=== PATIENT | female | born 1945 | race African-American/Black ===

== ENCOUNTER 2020-01-05 10:00 | Outpatient (CLI) | payer MEDICARE, SELFPAY ==
--- NOTE | ~2020-01-05 | XR_ITS ---
EXAMINATION: XR knee RT min 4V DATE: 01/05/2020 10:49 INDICATION: Multiple joint pain. TECHNIQUE: 4 views of right knee were obtained. COMPARISON: None. FINDINGS: Bone alignment is normal. No fracture. There is moderate osteoarthritis of medial compartme nt and mild osteoarthritis of lateral and patellofemoral compartments. No knee joint effusion. IMPRESSION: 1. Moderate right knee osteoarthritis. Reviewed, dictated and finalized at location A.
--- NOTE | ~2020-01-05 | XR_ITS ---
EXAMINATION: XR knee LT min 4V DATE: 01/05/2020 10:49 INDICATION: Multiple joint pain. TECHNIQUE: 4 views of left knee were obtained. COMPARISON: None. FINDINGS: Bone alignment is normal. No fracture. There is moderate osteoarthritis of medial compartme nt and mild osteoarthritis of lateral and patellofemoral compartments. No knee joint effusion. IMPRESSION: 1. Moderate left knee osteoarthritis. Reviewed, dictated and finalized at location A.
--- NOTE | ~2020-01-05 | XR_ITS ---
EXAMINATION: XR lumbar spine 6V w bending DATE: 01/05/2020 10:48 INDICATION: Multiple joint pain TECHNIQUE: Anteroposterior, lateral in neutral, flexion and extension, and bilateral oblique views of the lumbar spine, and cone-down lateral view of the lumbosacral junction were obtained. COMPARISON: None. FINDINGS: There are 6 mm of anterolisthesis of L4 on L5. No laxity is present with flexion or extensi on. There is no fracture. There is mild loss of intervertebral disc space height throughout the lumba r spine. The vertebral body heights are maintained. Small degenerative osteophytes project from the a nterior endplates of multiple vertebral bodies. There is severe facet osteoarthritis of the mid and l ower lumbar spine. Phleboliths are noted in the pelvis. The bowel gas pattern is normal. IMPRESSION: 1. Severe multilevel facet osteoarthritis and grade 1 anterolisthesis at L4-5, otherwise mild lumbar spondylosis. No acute findings. Reviewed, dictated and finalized at location A.
--- NOTE | ~2020-01-05 | XR_ITS ---
EXAMINATION: XR hip BI 2V w AP pelvis DATE: 01/05/2020 10:49 INDICATION: Multiple joint pain TECHNIQUE: AP view the pelvis and two views of each hip were obtained. COMPARISON: None. FINDINGS: Bone alignment is normal. There is no fracture. There is mild osteoarthritis of the pubic s ymphysis. Phleboliths are noted in the pelvis. IMPRESSION: 1. No acute osseous abnormality. Reviewed, dictated and finalized at location A.
[2020-01-05 11:06] LABS: Hematocrit 41.9 % (42.0-52.0); Hemoglobin 13.6 g/dL (14.0-18.0); Mean Corpuscular HGB Conc 32.5 g/dl (32-36); Mean Corpuscular Hemoglobin 31.3 pg (26-34); Mean Corpuscular Volume 96.5 fl (80-100); Mean Platelet Volume 9.9 fl (7.4-10.4); Platelet Count Result 216 k/mm3 (150-375); Red Blood Count 4.34 M/mm3 (4.6-6.20); Red Cell Distribution Width 11.6 % (11.5-14.5); White Blood Count 4.9 K/mm3 (4.5-10.0)
[2020-01-05 11:13] LABS: Add Urine Microscopic? YES; Appearance Urine Clear (Clear); Bilirubin Urine Negative (Negative); Blood Urine 1+ (Negative); Color Urine Yellow (Yellow); Glucose Urine UA Negative (Negative); Ketones Urine Negative (Negative); Leukocyte Esterase Ur 1+ LEU/UL (Negative); Mucus Urine Rare /lpf; Nitrate Urine Negative (Negative); Protein Urine Negative (Negative); Squamous Epithelial Cell Urine Many /hpf (Few); Urobilinogen Urine Negative mg/dL (<2.0)
[2020-01-05 11:26] LABS: Alanine Aminotransferase 14 U/L (4-50); Alkaline Phosphatase 69 U/L (38-126); Anion Gap 8 mmol/L (8-16); Aspartate Amino Transferase 21 U/L (17-59); Bilirubin,Total 0.3 mg/dL (0.2-1.3); Blood Urea Nitrogen 24 mg/dL (9-20); CRP 0.9 mg/dL (<1.0); Calcium 8.6 mg/dL (8.4-10.2); Carbon Dioxide 28 mmol/L (22-30); Chloride 106 mmol/L (98-107); Estimated Glomerular Filt Rate > 60; Glucose 94 mg/dL (75-110); Potassium 4.1 mmol/L (3.4-5.0); Rheumatoid Factor < 8.6 IU/ML (<12); Sodium 142 mmol/L (137-145)
[2020-01-09 12:04] LABS: Angiotensin Converting Enzyme 68 U/L (9-67)
[2020-01-09 21:54] LABS: Anti Cyclic Citrullinated Pept <16 Units (<20)
== END 2020-01-05 10:01 | disposition home or self-care (01) ==
PROVIDERS: PCP Internal Medicine; Visit Provider Internal Medicine
DX: M47.896 Other spondylosis, lumbar region (principal); M17.0 Bilateral primary osteoarthritis of knee
CPT/HCPCS: 36415; 72114; 73521; 73564; 80053; 81001; 82164; 85027; 86038; 86140; 86200; 86430; 87086; 87088

== ENCOUNTER 2020-12-18 00:58 | Day surgery (SDC) | payer MEDICARE, SELFPAY ==
[2020-12-04 09:58] VITALS: BMI 39.9
[2020-12-18 08:30] VITALS: BP 149/93; PULSE 91; RESP 18; TEMP 35.5; O2SAT 100; BMI 39.9
--- NOTE | 2020-12-18 08:39 | WPDANESEPPF ---
Anes - Initial Pre Proc Eval Procedure: Operation Date: 12/18/20 09:15 Proposed Procedures p Esophagogastroduodenoscopy & Screening Colonoscopy - Mk Zimmerman MD Date/Time: 12/18/20 08:39 Surgeon: Mk Zimmerman MD Pre Op Diagnosis: GERD, Neoplasm Screening Patient Data Age: 75 Gender: F Height: 1.57 m Weight: 99 kg Last Vital Signs Temp 35.5 C L 12/18/20 08:30 Pulse 91 12/18/20 08:30 Resp 18 12/18/20 08:30 BP 149/93 H 12/18/20 08:30 Pulse Ox 100 12/18/20 08:30 Allergies Allergy/AdvReac Type Severity Reaction Status Date / Time indomethacin Allergy Unknown Unknown Verified 12/18/20 08:28 levofloxacin [From Levaquin] Allergy Unknown Unknown Verified 12/18/20 08:28 Sulfa (Sulfonamide Allergy Unknown Unknown Verified 12/18/20 08:28 Antibiotics) Home Medications Medication Instructions Recorded Confirmed Type aspirin 81 mg tablet,delayed 81 mg PO DAILY 05/03/19 12/18/20 History release atorvastatin 40 mg tablet 40 mg PO DAILY 05/03/19 12/18/20 History esomeprazole magnesium 20 mg 20 mg PO DAILY 05/03/19 12/18/20 History capsule,delayed release naproxen 500 mg tablet 500 mg PO BID PRN #60 tablet 05/23/19 12/18/20 Rx prednisone 2.5 mg tablet 2.5 mg PO DAILY #40 tablet 01/09/20 12/18/20 Rx hydroxychloroquine 200 mg tablet 400 mg PO DAILY #60 tablet 06/04/20 12/18/20 Rx Patient hx anesthesia problems: none Family hx anesthesia problems: none PMFSH Past Medical History Medical History (Updated 01/09/20 @ 10:35 by Yonatan Cintron MD) Allergies Arthritis COPD (chronic obstructive pulmonary disease) Disorder of left rotator cuff (~11/2019) GERD (gastroesophageal reflux disease) 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 Surgical History Surgical History History of kidney surgery Family History Family History Father Kidney malignancy Mother Diabetes mellitus Sibling Diabetes mellitus Social History Social History Smoking status: Former smoker Tobacco type: cigarettes Alcohol intake: current Alcohol use details: socially Substance use: never Substance use type: does not use Living arrangements: with family Spiritual care concerns: No Anes - Eval Final PreProcedure Day of Procedure 12/18/20 08:39 Patient weight: obese Heart: regular rate and rhythm Lungs: clear to auscultation and normal air movement Airway: Mallampati scale class II Neurological: alert and oriented Last oral intake: >/= 8 hours ASA classification: III Emergent: no Anesthetic plan: proceed Anesthesia type and monitoring: general GIVS Informed Consent: The patient's anesthetic plan and its attendant risks and benefits were discussed with the patient/family/POA. Questions were solicited and answers provided to the satisfaction of the patient/family/POA.
[2020-12-18] MEDS: LACTATED RINGERS 1,000 ML 150 ML IV CONT (09:12)
--- NOTE | 2020-12-18 09:24 | PM.HPGS ---
History of Present Illness History of Present Illness Consent: Risks, benefits, and alternatives have been discussed and questions answered. Patient agrees to proceed with procedure. Chief complaint: GERD, Neoplasm Screening Narrative: Jing Chan is a 75 year old female with gerd, using nexium only as needed. She also is due to have a colonoscopy, last one 5 years ago with polyp. Review of Systems Constitutional: Constitutional: Denies headache(s) and Denies weakness Eyes: Eyes: Denies blurry vision ENT: Reports Normal hearing present, Denies headache(s) and Denies neck pain Cardiovascular: Cardiovascular: Denies chest pain and Denies dyspnea Respiratory: Respiratory: Denies dyspnea Gastrointestinal: Gastrointestinal: Reports no additional gastrointestinal complaints Genitourinary: Genitourinary: Denies dysuria Musculoskeletal: Musculoskeletal: Denies neck pain Integumentary/Breasts: Skin/Breast: Denies dry skin Neurologic: Reports Normal hearing present, Denies headache(s) and Denies weakness Psychiatric: Psychiatric: Denies anxiety Endocrine: Endocrine: Denies change in body appearance Hematologic/Lymphatic: Hematologic/Lymphatic: Denies easy bleeding Allergic/Immunologic: Allergic/Immunologic: Denies urticaria PMF Past Medical History Medical History (Updated 12/18/20 @ 09:25 by Mk Zimmerman MD) Allergies Arthritis Colon cancer screening COPD (chronic obstructive pulmonary disease) Disorder of left rotator cuff (~11/2019) GERD (gastroesophageal reflux disease) 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 Surgical History Surgical History History of kidney surgery Family History Family History Father Kidney malignancy Mother Diabetes mellitus Sibling Diabetes mellitus Social History Social History Smoking status: Former smoker Tobacco type: cigarettes Alcohol intake: current Alcohol use details: socially Substance use: never Substance use type: does not use Living arrangements: with family Spiritual care concerns: No Meds Home Medications and Allergies Home Medications Medication Instructions Recorded Confirmed Type aspirin 81 mg tablet,delayed 81 mg PO DAILY 05/03/19 12/18/20 History release atorvastatin 40 mg tablet 40 mg PO DAILY 05/03/19 12/18/20 History esomeprazole magnesium 20 mg 20 mg PO DAILY 05/03/19 12/18/20 History capsule,delayed release naproxen 500 mg tablet 500 mg PO BID PRN #60 tablet 05/23/19 12/18/20 Rx prednisone 2.5 mg tablet 2.5 mg PO DAILY #40 tablet 01/09/20 12/18/20 Rx hydroxychloroquine 200 mg tablet 400 mg PO DAILY #60 tablet 06/04/20 12/18/20 Rx Allergies Allergy/AdvReac Type Severity Reaction Status Date / Time indomethacin Allergy Unknown Unknown Verified 12/18/20 08:28 levofloxacin [From Levaquin] Allergy Unknown Unknown Verified 12/18/20 08:28 Sulfa (Sulfonamide Allergy Unknown Unknown Verified 12/18/20 08:28 Antibiotics) Vital Signs Vital Signs - 24 hr 12/18/20 08:30 Temperature 96 F L Pulse Rate 91 Respiratory Rate 18 Blood Pressure 149/93 H Pulse Oximetry 100 Exam Const: General: comfortable and no acute distress HENMT: General nose exam: Normal nares present Eyes: General: appearance normal, both eyes and all related structures Neck: Neck: no JVD Resp: Auscultation: clear to auscultation bilaterally Cardio: Rate: regular rate Rhythm: regular rhythm GI: Inspection: non-distended GI Palp: Yes Soft to palpation Skin: General skin exam: normal color Neuro: General: gait normal Speech: normal speech Extrem: General: normal to inspection Psych: Mental Status: mental status grossly normal Assessment and Plan Assessment and plan (1) GERD (
[2020-12-18] MEDS: BENZOCAINE (*SP) 60 ML SPRAY CAN (HURRICAINE) 1 SPRAY MUCOUS MEM (09:34)
[2020-12-18 10:16] VITALS: BP 81/46; PULSE 85; RESP 21; O2SAT 98
[2020-12-18 10:26] VITALS: BP 106/61; PULSE 82; RESP 20; O2SAT 96
[2020-12-18 10:36] VITALS: BP 119/56; PULSE 83; RESP 21; O2SAT 100
[2020-12-18 10:46] VITALS: BP 108/54; PULSE 76; RESP 20; O2SAT 100
== END 2020-12-18 11:13 | disposition home or self-care (01) ==
PROVIDERS: PCP Internal Medicine; Visit Provider Internal Medicine Gastroenterology
PROC: 0DJ08ZZ Inspection of Upper Intestinal Tract, Via Natural or Artificial Opening Endoscopic (ICD-10-PCS; CPT 43235; principal; 2020-12-18 09:15)
DX: Z12.11 Encounter for screening for malignant neoplasm of colon (principal); D12.3 Benign neoplasm of transverse colon; K63.5 Polyp of colon; K21.9 Gastro-esophageal reflux disease without esophagitis; K44.9 Diaphragmatic hernia without obstruction or gangrene; K22.2 Esophageal obstruction; K29.50 Unspecified chronic gastritis without bleeding; J44.9 Chronic obstructive pulmonary disease, unspecified; Z87.891 Personal history of nicotine dependence; Z79.82 Long term (current) use of aspirin
CPT/HCPCS: 43239; 45380; 45385; 88305; J2704; J7120

== ENCOUNTER 2021-08-29 08:49 | Outpatient (CLI) | payer MEDICARE, SELFPAY ==
[2021-08-29 09:18] LABS: Basophils Absolute Auto 0.1 K/mm3 (0.0-0.1); Eosinophils Absolute Auto 0.4 K/mm3 (0-0.3); Eosinophils Percent Auto 8.5 % (0-4.4); Hematocrit 46.4 % (37.0-47.0); Hemoglobin 14.4 g/dL (12.0-15.0); Immature Granulocyte Absolute 0.01 K/mm3 (0.00-0.031); Immature Granulocyte Percent A 0.2 % (0-0.5); Lymphocytes Absolute Auto 1.67 K/mm3 (0.9-3.2); Lymphocytes Percent Auto 34.5 % (18.3-44.2); Mean Corpuscular Volume 99.8 fl (80-100); Mean Platelet Volume 10.2 fl (7.4-10.4); Monocytes Absolute Auto 0.5 K/mm3 (0.1-0.6); Monocytes Percent Auto 9.3 % (2.6-8.5); Neutrophils Absolute Auto 2.3 K/mm3 (1.3-6.7); Neutrophils Percent Auto 46.5 % (45.5-73.1); Platelet Count Result 205 k/mm3 (150-375); Red Blood Count 4.65 M/mm3 (4.2-5.4); Red Cell Distribution Width 11.6 % (11.5-14.5); White Blood Count 4.8 K/mm3 (4.5-10.0)
[2021-08-29 09:31] LABS: Alanine Aminotransferase 12 U/L (4-35); Albumin Level 4.1 g/dL (3.5-5.1); Alkaline Phosphatase 63 U/L (38-126); Anion Gap 9 mmol/L (8-16); Aspartate Amino Transferase 24 U/L (14-36); Bilirubin,Total 0.6 mg/dL (0.2-1.3); Blood Urea Nitrogen 20 mg/dL (7-17); Calcium 8.7 mg/dL (8.4-10.2); Carbon Dioxide 30 mmol/L (22-30); Chloride 104 mmol/L (98-107); Estimated Glomerular Filt Rate > 60; Glucose 97 mg/dL (65-110); Potassium 3.6 mmol/L (3.4-5.0); Sodium 143 mmol/L (137-145)
[2021-08-29 10:00] LABS: Add Urine Microscopic? YES; Appearance Urine Clear (Clear); Bilirubin Urine Negative (Negative); Blood Urine Negative (Negative); Color Urine Yellow (Yellow); Glucose Urine UA Negative (Negative); Ketones Urine Negative (Negative); Leukocyte Esterase Ur 1+ LEU/UL (Negative); Nitrate Urine Negative (Negative); Protein Urine Negative (Negative); Specific Grav Ur >= 1.030 (1.001-1.035)
[2021-08-29 10:10] LABS: Mucus Urine Rare /lpf; Squamous Epithelial Cell Urine Many /hpf (Few); WBC Urine 16-20 /hpf
[2021-08-29 10:55] LABS: Erythrocyte Sedimentation Rate 20 mm/hr (0-20)
== END 2021-08-29 08:50 | disposition home or self-care (01) ==
LOC: ANHLAB 08:54
PROVIDERS: PCP Internal Medicine; Visit Provider Internal Medicine
DX: M06.9 Rheumatoid arthritis, unspecified (principal); Z79.899 Other long term (current) drug therapy
CPT/HCPCS: 36415; 80053; 81001; 85025; 85652; 87086; 87147; 87181; 87186

== ENCOUNTER 2021-09-09 13:11 | Outpatient (CLI) | payer MEDICARE, SELFPAY ==
--- NOTE | ~2021-09-09 | US_ITS ---
EXAMINATION: US pelvic complete w TV DATE: 09/09/2021 14:02 INDICATION: Postmenopausal bleeding TECHNIQUE: Multiple transabdominal and endovaginal sonographic images of the pelvis were obtained. COMPARISON: None. FINDINGS: The uterus measures 7.6 x 3.6 x 4.8 cm. There is a 2.8 x 2.4 cm intramural fibroid of the p osterior uterine body. The endometrial complex measures 6 mm. The left ovary is not visualized howeve r no left adnexal abnormality is seen. The right ovary measures 1.4 x 2.2 x 1.0 cm. There is normal v ascular flow in the right ovary. There is no free fluid in the pelvis. IMPRESSION: 1. No sonographic correlate for the patient's symptoms. Reviewed, dictated and finalized at location F.
== END 2021-09-09 13:12 | disposition home or self-care (01) ==
LOC: ANHIMG 13:15
PROVIDERS: PCP Internal Medicine; Visit Provider Obstetrics & Gynecology
DX: N93.9 Abnormal uterine and vaginal bleeding, unspecified (principal)
CPT/HCPCS: 76830; 76856

== ENCOUNTER → 2021-10-07 01:44 | Outpatient (CLI) | payer MEDICARE, SELFPAY ==
[2021-10-07 16:48] LABS: SARS-CoV-2 RNA PCR Negative
== END ==
PROVIDERS: PCP Internal Medicine; Visit Provider Internal Medicine
DX: R05.9 Cough, unspecified (principal); Z20.822 Contact with and (suspected) exposure to COVID-19
CPT/HCPCS: C9803; U0003; U0005

== ENCOUNTER 2021-11-06 08:52 | Outpatient (RCR) | payer MEDICARE, SELFPAY ==
[2021-11-06 09:05] VITALS: BP_SYST 135
--- NOTE | 2021-11-06 09:59 | PTOPEVAL ---
PHYSICAL THERAPY EVALUATION AND PLAN OF CARE 11-06-21 Thank you for referring Jing Chan to [facility], for the diagnosis of L shoulder pain. Her order is dated August, but she reports issues with getting here due to watching her great-grandchildren. Jing is scheduled to be seen for therapy? 0-1 x/week for 6 weeks. Due to her schedule and insurance co-payment, she requests PT treatments be scheduled once every 2 weeks. Please review, sign, date and return this plan of care LAUREL. I agree with and certify that the following plan of care is medically necessary. Referring Physician Date Attending Provider: Yonatan Cintron MD Past Medical History Source of Past Medical History Recalled from Previous Visit, Confirmed with Patient/Family Neurological History Hx Neurological Disorders No Significant History Cardiovascular History Hx Hypercholesterolemia Yes: med Respiratory History Hx Chronic Obstructive Pulmonary Disease Yes: inhaler (COPD) Gastrointestinal History Hx Appendectomy Yes Hx Cholecystectomy Yes Genitourinary History Hx Urinary Tract Infection Yes: frequent Musculoskeletal History Hx Arthritis Yes: sarcoidosis; all over arthritis Hx Back Pain Yes Hx Other Musculoskeletal Disorders Yes: B knee pain Hematological History Hx Hematological Disorders No Significant History Endocrine History Hx Endocrine Disorders No Significant History HEENT History Hx Cataracts Yes Hx Eye Surgery Yes Integumentary History Hx Skin Disorders No Significant History Reproductive History Hx Tubal Ligation Yes Psychosocial History Hx Psychiatric Disorders No Significant History Anesthesia History Hx Anesthesia Reactions No Significant History Other History Hx Other Medical Conditions Yes: obesity Evaluation Information Diagnosis L shoulder pain Onset May 2021 Subjective Information gradual increase in shoulder Query Text:As Reported By Patient/ pain, no trauma or injury to Family shoulder Diagnostic Tests X-Rays For This Problem No MRI For This Problem No Other Tests For This Problem No Previous Treatments Previous Treatments For This Problem no PT for shoulder in past Prior Level of Function Activity Level (Last 3 Months) Occupation disabled Hand Dominance Right Comments Additional Prior Level of Function is able to do bathing and self Comments care tasks-- difficulty doing hair, problems holding L arm up to fix hair; has assist with home cleaning and heavy home tasks; garcia
--- NOTE | 2021-12-04 09:57 | PCPTNOTE ---
Patient no showed to appointment this date.
--- NOTE | 2022-03-03 16:09 | PCPTNOTE ---
PHYSICAL THERAPY DISCHARGE 03-03-22 Attending Provider: Yonatan Cintron MD Patient:Jing Chan Date of :1945 LATE ENTRY Jing has not returned for any further treatments since the initial PT evaluation on 11/06/2021 for the diagnosis of L shoulder pain, therefore she will be discharged at this time. Thank you for referring this patient to [facility].
== END 2022-01-26 11:57 | disposition home or self-care (01) ==
LOC: ANHPT 08:52
PROVIDERS: PCP Internal Medicine; Visit Provider Internal Medicine
DX: M67.912 Unspecified disorder of synovium and tendon, left shoulder (principal)
CPT/HCPCS: 97161

== ENCOUNTER 2021-12-17 00:27 | Day surgery (SDC) | payer MEDICARE, SELFPAY ==
--- NOTE | 2021-11-24 10:29 | PC.NURSE ---
Report to the Outpatient Waiting Room, entrance under the green pavilion located off [facility], at time __0900 on date _11/27/21 . OR Time: __1100 . - You and your visitor will be asked a series of questions to screen for COVID 19 for your protection. - Only one visitor is allowed at this time. - The patient visitor is requested to leave or wait in car when not with patient. - A mask is required within the hospital. Patients may have clear liquids (water, carbonated beverages, clear teas, apple juice) until 3 hours prior to surgery with a maximum of 20 ounces. - No food from midnight until time of surgery - Infants may have breast milk until 4 hours before surgery, infant formula 6 hours prior to surgery. - Children will be allowed to drink immediately following surgery. If applicable, please bring a bottle or sippy cup to assist with drinking. Juice, water, soda, and popsicles are readily available. For infants on formula, please bring formula the day of surgery. Pacifiers are allowed. Take the following medications with a SIP of water the morning of surgery: ____NONE Medications to discontinue per physician ALL VITAMINS 3 DAYS___PRE OP Date to take last dose__11/23/21 Please no make-up, nail greenlandic, hairspray, perfume, deodorant, or body powder the day of surgery. No jewelry (including any body piercings) or valuables the day of surgery, leave them at home. Please take a shower or bath the night before, or the morning of, surgery with an antibacterial soap. Wear comfortable, loose fitting clothing. Children are encouraged to wear pajamas. - Jewelry must be removed prior to entering the operating room. Rings and piercings that are not removed may be cut off. - The hospital will not accept responsibility for valuables. - Please leave all valuables, including medications, at home the day of surgery. If you are going home after surgery, a licensed skidder driver must drive you home. - NO public transportation without another adult. - We recommend that an adult stay with you for 24 hours following discharge. - We also recommend that you do not drive, make important decision, drink alcoholic beverages, or take any drugs that were not prescribed by your health care provider for at least 24 hours after your discharge time. For Pediatric surgeries, we recommend two adults accompany the child home (only one inside the building at this time). Follow any additional instructions given to you from your surgeon. If you or anyone in your household have experienced Covid symptoms in the past week, please notify your surgeon or the nurse liaison at the phone number below for possible testing. Telephone instructions given to _PATIENT and asked if any additional questions and then verbalized understanding. Patient advised to call surgeon office or pre surgery nurse liaison [phone] if any additional questions.
[2021-11-24 10:35] VITALS: BMI 42.5
--- NOTE | 2021-12-10 09:00 | PC.NURSE ---
Addendum entered by Gretel Campbell RN 12/10/21 09:05: PT INFORMED TO USE INHALER DAY OF SURGERY IF NEEDED - UNDERSTANDING VOICED Original Note: Report to the Outpatient Waiting Room, entrance under the green pavilion located off [facility], at time ___1000____ on date __12/17/21 . OR Time: _1200 . - You and your visitor will be asked a series of questions to screen for COVID 19 for your protection. - Only one visitor is allowed at this time. - The patient visitor is requested to leave or wait in car when not with patient. - A mask is required within the hospital. Patients may have clear liquids (water, carbonated beverages, clear teas, apple juice) until 3 hours prior to surgery (0900 AM) with a maximum of 20 ounces. - No food from midnight until time of surgery - Infants may have breast milk until 4 hours before surgery, formula 6 hours prior to surgery. - Children will be allowed to drink immediately following surgery. If applicable, please bring a bottle or sippy cup to assist with drinking. Juice, water, soda, and popsicles are readily available. For infants on formula, please bring formula the day of surgery. Pacifiers are allowed. Take the following medications with a SIP of water the morning of surgery: N/A Medications to discontinue per physician ALL VITAMINS AND SUPPLEMENTS 3 DAYS PRIOR TO SURGERY Date to take last dose___12/13/21 Please no make-up, nail albanian, hairspray, perfume, deodorant, or body powder the day of surgery. No jewelry (including any body piercings) or valuables the day of surgery, leave them at home. Please take a shower or bath the night before, or the morning of, surgery with an antibacterial soap. Wear comfortable, loose fitting clothing. Children are encouraged to wear pajamas. - Jewelry must be removed prior to entering the operating room. Rings and piercings that are not removed may be cut off. - The hospital will not accept responsibility for valuables. - Please leave all valuables, including medications, at home the day of surgery. If you are going home after surgery, a licensed class c truck driver must drive you home. - NO public transportation without another adult. - We recommend that an adult stay with you for 24 hours following discharge. - We also recommend that you do not drive, make important decision, drink alcoholic beverages, or take any drugs that were not prescribed by your health care provider for at least 24 hours after your discharge time. For Pediatric surgeries, we recommend two adults accompany the child home (only one inside the building at this time). Follow any additional instructions given to you from your surgeon. If you or anyone in your household have experienced Covid symptoms in the past week, please notify your surgeon or the nurse liaison at the phone number below for possible testing. Telephone instructions given to __PT and asked if any additional questions and then verbalized understanding. Patient advised to call surgeon office or pre surgery nurse liaison [phone] if any additional questions.
[2021-12-10 09:03] VITALS: BMI 42.5
--- NOTE | 2021-12-17 08:35 | PM.IMHP ---
H&P: HPI History of Present Illness Date/Time: 12/17/21 08:35 76-year-old female presents for evaluation of postmenopausal bleeding. First experience this spotting/ red discharge approximate 3-4 months ago at which time ultrasound was performed which showed small fibroid and normal endometrial stripe. She has continued to have spotting and we have discussed options and she desires to proceed with hysteroscopic exam to confirm no abnormalities other than potentially the fibroid causing the bleeding. Chief Complaint: Postmenopausal bleeding Review of Systems Review of Systems: All systems reviewed & are unremarkable except as noted in HPI and below PMFSH Past Medical History Medical History Abnormal Pap smear of cervix 06-15-2019 [facility] hpv negative rpt pap in 1 year @ [facility] 12/16/2017 +HPV Allergies Arthritis Asthma Colon cancer screening COPD (chronic obstructive pulmonary disease) Disorder of left rotator cuff (~11/2019) Gall stones GERD (gastroesophageal reflux disease) 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 Surgical History Surgical History History of cholecystectomy History of dilation and curettage (09/28/19) D&C postmenopausal bleeding , uterine fibroids : benign History of kidney surgery History of tubal ligation Family History Family History Father Kidney malignancy Heart disease Mother Diabetes mellitus Sibling Diabetes mellitus Other Breast cancer cousin Social History Social History Smoking packs per day: 0.5 Smoking cigarettes per day: 10.0 Years smoked: 15 Smoking pack-years: 7.50 Smoking status: Former smoker Tobacco type: cigarettes Smoking end date: 05/17/69 Alcohol intake: current Alcohol use details: socially Substance use: never Substance use type: does not use Living arrangements: with family Additional living arrangements comments: Gender identity (if verbalized by the patient): Female Sexual Orientation (if Verbalized by the Patient): Straight or Heterosexual Spiritual care concerns: No Meds Home Medications and Allergies Home Medications Medication Instructions Recorded Confirmed Type atorvastatin 40 mg tablet 40 mg PO DAILY 05/03/19 12/10/21 History esomeprazole magnesium 20 mg 20 mg PO DAILY #30 caps 12/25/20 12/10/21 Rx capsule,delayed release cetirizine 10 mg tablet 10 mg PO DAILY PRN Allergy Symptoms 08/28/21 12/10/21 History meclizine 25 mg tablet 25 mg PO BID PRN Dizziness 08/28/21 12/10/21 History trazodone 50 mg tablet 25 mg PO QHS PRN Pain 08/28/21 12/10/21 History albuterol 90 mcg/actuation aerosol 90 mcg inhalation PRN PRN 11/24/21 12/10/21 History inhaler Shortness Of Breath allopurinol 100 mg tablet 1 tablet PO DAILY 11/24/21 12/10/21 History calcitriol 0.25 mcg capsule 1 cap PO DAILY 11/24/21 12/10/21 History ergocalciferol (vitamin D2) 1,250 1 cap PO WEEKLY 11/24/21 12/10/21 History mcg (50,000 unit) capsule hydroxychloroquine 200 mg tablet 200 mg PO BID 11/24/21 12/10/21 History (Plaquenil) losartan 25 mg tablet 1 tablet PO DAILY 11/24/21 12/10/21 History Allergies Allergy/AdvReac Type Severity Reaction Status Date / Time indomethacin Allergy Unknown Itching Verified 12/10/21 09:02 levofloxacin [From Levaquin] Allergy Unknown Itching Verified 12/10/21 09:02 Sulfa (Sulfonamide Allergy Unknown Hives Verified 12/10/21 09:02 Antibiotics) Exam Const: General: cooperative, healthy appearing and comfortable Resp: Effort & Inspection: normal respiratory effort Auscultation: clear to auscultation bilaterally Cardio: Rate: regular rate Rhythm: regular rhythm GI: Inspection: normal to inspection Ausculta
--- NOTE | 2021-12-17 08:37 | WPDHPUPDATE1 ---
History and Physical Update Update Date/Time: 12/17/21 08:37 History and Physical has been reviewed, including an updated exam of the patient. There are NO changes in the patient's condition. Risks, benefits, and alternatives have been discussed and questions answered. Patient agrees to proceed with procedure.
[2021-12-17 10:02] VITALS: BP 142/75; PULSE 90; RESP 18; TEMP 36.7; O2SAT 100
[2021-12-17] MEDS: LACTATED RINGERS 1,000 ML 30 ML IV CONT (10:30)
[2021-12-17] MEDS: ACETAMINOPHEN 500 MG TABLET 1000 MG PO (10:33)
--- NOTE | 2021-12-17 11:05 | WPDANESEPPF ---
Anes - Initial Pre Proc Eval Procedure: Operation Date: 12/17/21 12:00 Proposed Procedures p Hysteroscopy, Dilation and Curettage - Juan José Lott MD Date/Time: 12/17/21 11:05 Surgeon: Juan José Lott MD Pre Op Diagnosis: post menopausal bleeding Patient Data Age: 76 Gender: F Height: 1.55 m Weight: 102 kg Last Vital Signs Temp 98.1 F 12/17/21 10:02 Pulse 90 12/17/21 10:02 Resp 18 12/17/21 10:02 BP 142/75 H 12/17/21 10:02 Pulse Ox 100 12/17/21 10:02 O2 Del Method Room Air 12/17/21 10:02 Allergies Allergy/AdvReac Type Severity Reaction Status Date / Time indomethacin Allergy Unknown Itching Verified 12/17/21 10:11 levofloxacin [From Levaquin] Allergy Unknown Itching Verified 12/17/21 10:11 Sulfa (Sulfonamide Allergy Unknown Hives Verified 12/17/21 10:11 Antibiotics) Home Medications Medication Instructions Recorded Confirmed Type atorvastatin 40 mg tablet 40 mg PO DAILY 05/03/19 12/17/21 History esomeprazole magnesium 20 mg 20 mg PO DAILY #30 caps 12/25/20 12/17/21 Rx capsule,delayed release cetirizine 10 mg tablet 10 mg PO DAILY PRN Allergy Symptoms 08/28/21 12/17/21 History meclizine 25 mg tablet 25 mg PO BID PRN Dizziness 08/28/21 12/17/21 History trazodone 50 mg tablet 25 mg PO QHS PRN Pain 08/28/21 12/17/21 History albuterol 90 mcg/actuation aerosol 90 mcg inhalation PRN PRN 11/24/21 12/17/21 History inhaler Shortness Of Breath allopurinol 100 mg tablet 1 tablet PO DAILY 11/24/21 12/17/21 History calcitriol 0.25 mcg capsule 1 cap PO DAILY 11/24/21 12/17/21 History ergocalciferol (vitamin D2) 1,250 1 cap PO WEEKLY 11/24/21 12/17/21 History mcg (50,000 unit) capsule hydroxychloroquine 200 mg tablet 200 mg PO BID 11/24/21 12/17/21 History (Plaquenil) losartan 25 mg tablet 1 tablet PO DAILY 11/24/21 12/17/21 History Patient hx anesthesia problems: none Family hx anesthesia problems: none Results Review: All pre-operative results and documents have been reviewed as part of the pre-operative evaluation. 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 Surgical History Surgical History History of cholecystectomy History of dilation and curettage (09/28/19) D&C postmenopausal bleeding , uterine fibroids : benign History of kidney surgery History of tubal ligation Family History Family History Father Kidney malignancy Heart disease Mother Diabetes mellitus Sibling Diabetes mellitus Other Breast cancer cousin Social History Social History Smoking packs per day: 0.5 Smoking cigarettes per day: 10.0 Years smoked: 15 Smoking pack-years: 7.50 Smoking status: Former smoker Tobacco type: cigarettes Smoking end date: 05/17/69 Alcohol intake: current Alcohol use details: socially Substance use: never Substance use type: does not use Living arrangements: with family Additional living arrangements comments: Gender identity (if verbalized by the patient): Female Sexual Orientation (if Verbalized by the Patient): Straight or Heterosexual Spiritual care concerns: No Anes - Eval Final PreProcedure Day of Procedure 12/17/21 11:05 Patient weight: morbidly obese Heart: regular rate and rhythm Lungs: clear to auscultation Airway: Mallampati scale class II Neurological: alert and oriented Last oral
--- NOTE | 2021-12-17 11:28 | WPDANESEPPF ---
Anes - Initial Pre Proc Eval Procedure: Operation Date: 12/17/21 12:00 Proposed Procedures p Hysteroscopy, Dilation and Curettage - Juan José Lott MD Date/Time: 12/17/21 11:28 Surgeon: Juan José Lott MD Pre Op Diagnosis: post menopausal bleeding Patient Data Age: 76 Gender: F Height: 1.55 m Weight: 102 kg Last Vital Signs Temp 98.1 F 12/17/21 10:02 Pulse 90 12/17/21 10:02 Resp 18 12/17/21 10:02 BP 142/75 H 12/17/21 10:02 Pulse Ox 100 12/17/21 10:02 O2 Del Method Room Air 12/17/21 10:02 Allergies Allergy/AdvReac Type Severity Reaction Status Date / Time indomethacin Allergy Unknown Itching Verified 12/17/21 10:11 levofloxacin [From Levaquin] Allergy Unknown Itching Verified 12/17/21 10:11 Sulfa (Sulfonamide Allergy Unknown Hives Verified 12/17/21 10:11 Antibiotics) Home Medications Medication Instructions Recorded Confirmed Type atorvastatin 40 mg tablet 40 mg PO DAILY 05/03/19 12/17/21 History esomeprazole magnesium 20 mg 20 mg PO DAILY #30 caps 12/25/20 12/17/21 Rx capsule,delayed release cetirizine 10 mg tablet 10 mg PO DAILY PRN Allergy Symptoms 08/28/21 12/17/21 History meclizine 25 mg tablet 25 mg PO BID PRN Dizziness 08/28/21 12/17/21 History trazodone 50 mg tablet 25 mg PO QHS PRN Pain 08/28/21 12/17/21 History albuterol 90 mcg/actuation aerosol 90 mcg inhalation PRN PRN 11/24/21 12/17/21 History inhaler Shortness Of Breath allopurinol 100 mg tablet 1 tablet PO DAILY 11/24/21 12/17/21 History calcitriol 0.25 mcg capsule 1 cap PO DAILY 11/24/21 12/17/21 History ergocalciferol (vitamin D2) 1,250 1 cap PO WEEKLY 11/24/21 12/17/21 History mcg (50,000 unit) capsule hydroxychloroquine 200 mg tablet 200 mg PO BID 11/24/21 12/17/21 History (Plaquenil) losartan 25 mg tablet 1 tablet PO DAILY 11/24/21 12/17/21 History Patient hx anesthesia problems: none Family hx anesthesia problems: none Results Review: All pre-operative results and documents have been reviewed as part of the pre-operative evaluation. 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 Surgical History Surgical History History of cholecystectomy History of dilation and curettage (09/28/19) D&C postmenopausal bleeding , uterine fibroids : benign History of kidney surgery History of tubal ligation Family History Family History Father Kidney malignancy Heart disease Mother Diabetes mellitus Sibling Diabetes mellitus Other Breast cancer cousin Social History Social History Smoking packs per day: 0.5 Smoking cigarettes per day: 10.0 Years smoked: 15 Smoking pack-years: 7.50 Smoking status: Former smoker Tobacco type: cigarettes Smoking end date: 05/17/69 Alcohol intake: current Alcohol use details: socially Substance use: never Substance use type: does not use Living arrangements: with family Additional living arrangements comments: Gender identity (if verbalized by the patient): Female Sexual Orientation (if Verbalized by the Patient): Straight or Heterosexual Spiritual care concerns: No Anes - Eval Final PreProcedure Day of Procedure 12/17/21 11:28 Patient weight: morbidly obese Airway: Mallampati scale class II ASA classification: III Anesthesia type and monitoring: general GIVS and standard monitoring Results Re
--- NOTE | 2021-12-17 12:25 | W.PM.PROC2 ---
Procedure Note - Detailed Date of Procedure 12/17/21 Pre-op Diagnosis post menopausal bleeding Post-op Diagnosis Same Procedure Performed Hysteroscopy with uterine curettings Surgeon Juan José Lott MD Anesthesia MAC Findings Small intrauterine clot. Endometrial cavity atrophic. No polyps fibroids or hypervascularity noted. Description of Procedure Patient prepped draped usual manner for this procedure. Cervix dilated to allow the hysteroscope to place which was placed with findings as noted above. Curetting was then obtained with minimal tissue. At this point procedure was considered terminated patient was sent to recovery in a stable condition. Estimated Blood Loss 10 Drains No Packing No Pathology Yes Complications No immediate complications Condition Stable Disposition PACU [facility] Billing Surgery - Charge Forward: Surgery Billing
[2021-12-17 12:30] VITALS: BP 101/57; PULSE 83; RESP 16; O2SAT 97
[2021-12-17 13:25] VITALS: BP 110/58; PULSE 78; RESP 16
== END 2021-12-17 13:35 | disposition home or self-care (01) ==
PROVIDERS: PCP Internal Medicine; Visit Provider Obstetrics & Gynecology
PROC: 0U5B8ZZ Destruction of Endometrium, Via Natural or Artificial Opening Endoscopic (ICD-10-PCS; CPT 58563; principal; 2021-12-17 12:00)
DX: N95.0 Postmenopausal bleeding (principal); J44.9 Chronic obstructive pulmonary disease, unspecified; K21.9 Gastro-esophageal reflux disease without esophagitis; Z79.51 Long term (current) use of inhaled steroids; Z87.891 Personal history of nicotine dependence; E66.01 Morbid (severe) obesity due to excess calories; Z68.41 Body mass index [BMI] 40.0-44.9, adult
CPT/HCPCS: 58558; 88305; A9270; J2704; J3010; J7030; J7120

== ENCOUNTER 2023-11-16 14:34 | Emergency (ER) | payer MEDICARE, SELFPAY ==
--- NOTE | ~2023-11-16 | CT_ITS ---
EXAMINATION: CT brain wo con DATE: 11/16/2023 16:58 INDICATION: R sided headache . TECHNIQUE: Computed tomography (CT) of the head was performed without intravenous contrast. The mA wa s adjusted according to patient size. Iterative reconstruction technique was employed. The dose-lengt h product was 605.33 mGy-cm. COMPARISON: None. FINDINGS: No acute intracranial hemorrhage or extra-axial fluid collection. No hydrocephalus, mass, or herniation. No acute ischemic infarct. Unremarkable dural venous sinus attenuation. No acute osseous abnormality. Small retention cyst/polyp in the right sphenoid sinus, ethmoid mucosal thickening, the remaining aer ated spaces are clear. Mild atrophy and chronic white matter change. Atherosclerotic intracranial calcification. Bilateral l ens replacements. Bilateral basal ganglia calcification. IMPRESSION: No acute intracranial process. Reviewed, dictated and finalized at location K.
[2023-11-16 14:45] VITALS: BP 111/66; PULSE 87; RESP 16; TEMP 36.3; O2SAT 100
--- NOTE | 2023-11-16 16:48 | ED.GENADULT ---
HPI - General Adult General Chief complaint: Dizziness Stated complaint: headache, dizzy Time Seen by Provider: 11/16/23 16:01 History of Present Illness HPI narrative: This is a very pleasant 78-year-old female presenting with a right-sided headache. Patient's headache has been coming on and off for the last several weeks. She describes as a throbbing pain. It is not associated with visual changes, loss of consciousness, trauma or neurologic deficits. Patient notes she is under significant amount of stress at home. She is not taking anything for pain control. She came to the ED because she call her primary care physician telling him that she had a headache and he said it could be a stroke. Related Data Home Medications Medication Instructions Recorded Confirmed atorvastatin 40 mg tablet 40 mg PO DAILY 05/03/19 09/21/23 cetirizine 10 mg tablet 10 mg PO DAILY PRN Allergy Symptoms 08/28/21 09/21/23 meclizine 25 mg tablet 25 mg PO BID PRN Dizziness 08/28/21 09/21/23 trazodone 50 mg tablet 25 mg PO QHS PRN Pain 08/28/21 09/21/23 albuterol 90 mcg/actuation aerosol 90 mcg inhalation PRN PRN 11/24/21 09/21/23 inhaler Shortness Of Breath allopurinol 100 mg tablet 1 tablet PO DAILY 11/24/21 09/21/23 calcitriol 0.25 mcg capsule 1 cap PO DAILY 11/24/21 09/21/23 ergocalciferol (vitamin D2) 1,250 1 cap PO WEEKLY 11/24/21 09/21/23 mcg (50,000 unit) capsule losartan 25 mg tablet 1 tablet PO DAILY 11/24/21 09/21/23 Allergies Allergy/AdvReac Type Severity Reaction Status Date / Time indomethacin Allergy Unknown Itching Verified 09/21/23 09:47 levofloxacin [From Levaquin] Allergy Unknown Itching Verified 09/21/23 09:47 Penicillins Allergy Unknown Unknown Verified 09/21/23 09:47 Sulfa (Sulfonamide Allergy Unknown Hives Verified 09/21/23 09:47 Antibiotics) COUNTS INCLUDE 234 BEDS AT THE [facility] Past Medical History Medical History Abnormal Pap smear of cervix 06-15-2019 ascus hpv negative rpt pap in 1 year @ A/E 12/16/2017 +HPV Allergies Arthritis Asthma Colon cancer screening COPD (chronic obstructive pulmonary disease) 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 (~11/2019) Gall stones GERD (gastroesophageal reflux disease) 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 Surgical History Surgical History History of cholecystectomy History of dilation and curettage (09/28/19) D&C postmenopausal bleeding , uterine fibroids : benign History of hysteroscopy (12/17/21) Hscope D&C PMB History of kidney surgery History of tubal ligation Family History Family History Father Kidney malignancy Heart disease Mother Diabetes mellitus Sibling Diabetes mellitus Other Breast cancer cousin Social History Social History Smoking packs per day: 0.5 Smoking cigarettes per day: 10.0 Years smoked: 15 Smoking pack-years: 7.50 Smoking status: Former smoker Tobacco type: cigarettes Smoking end date: 05/17/69 Alcohol intake: current Alcohol use details: socially Substance use: never Substance use type: does not use Living arrangements: with family Additional living arrangements comments: Occupation/Education: retired Gender identity (if verbalized by the patient): Female Sexual Orientation (if Verbalized by the Patient): Straight or Heterosexual Spiritual care concerns: No Exam Narrative: APPEARANCE: No apparent distress. Head: atraumatic. EYES: EOMI, NOSE: Atraumatic NECK: Trachea midline RESPIRATORY: No increased rate of breathing CARDIOVASCULAR: RRR, ABDOMINAL: Non-distended MUSCULOSKELETAl: No obvious deformities NEURO: Alert. Cranial nerves 2-12 grossly intact. Sensation light touch, motor f
[2023-11-16] MEDS: ACETAMINOPHEN 500 MG TABLET 1000 MG PO (17:40)
[2023-11-16] MEDS: diphenhydrAMINE HCl CAP 25 MG CAPSULE PO (17:51)
[2023-11-16] MEDS: PROCHLORPERAZINE EDISYLATE 10 MG/2 ML VIAL IM (17:51)
== END 2023-11-16 17:45 | disposition home or self-care (01) ==
PROVIDERS: Emergency Provider Emergency Medicine; PCP Internal Medicine
DX: R51.9 Headache, unspecified (principal); J44.9 Chronic obstructive pulmonary disease, unspecified; D86.0 Sarcoidosis of lung; M19.90 Unspecified osteoarthritis, unspecified site; M47.816 Spondylosis without myelopathy or radiculopathy, lumbar region; K21.9 Gastro-esophageal reflux disease without esophagitis; Z90.49 Acquired absence of other specified parts of digestive tract; Z87.891 Personal history of nicotine dependence; Z79.899 Other long term (current) drug therapy
CPT/HCPCS: 70450; 96372; 99284; A9270; J0780

== ENCOUNTER 2024-07-18 00:27 | Day surgery (SDC) | payer MEDICARE, SELFPAY ==
[2024-04-20 09:49] VITALS: BMI 39.9
[2024-07-05 09:34] VITALS: BMI 39.9
[2024-07-18 09:16] VITALS: BP 155/91; PULSE 108; RESP 20; TEMP 36; O2SAT 100
[2024-07-18] MEDS: LACTATED RINGERS 1,000 ML 150 ML IV CONT (09:28)
--- NOTE | 2024-07-18 09:33 | WPDANESEPPF ---
Anes - Initial Pre Proc Eval Procedure: Operation Date: 07/18/24 10:30 Proposed Procedures p Colonoscopy - Mk Zimmerman MD Date/Time: 07/18/24 09:33 Surgeon: Mk Zimmerman MD Pre Op Diagnosis: Personal hx. of colon polyps Patient Data Age: 79 Gender: F Height: 1.57 m Weight: 98 kg Last Vital Signs Temp 36.0 C L 07/18/24 09:16 Pulse 108 H 07/18/24 09:16 Resp 20 07/18/24 09:16 BP 155/91 H 07/18/24 09:16 Pulse Ox 100 07/18/24 09:16 O2 Del Method Room Air 07/18/24 09:16 Allergies Allergy/AdvReac Type Severity Reaction Status Date / Time indomethacin Allergy Unknown Itching Verified 07/18/24 09:08 levofloxacin (From Levaquin) Allergy Unknown Itching Verified 07/18/24 09:08 Penicillins Allergy Unknown Unknown Verified 07/18/24 09:08 Sulfa (Sulfonamide Allergy Unknown Hives Verified 07/18/24 09:08 Antibiotics) Home Medications ?Medication ?Instructions ?Recorded ?Confirmed ?Type atorvastatin 40 mg tablet 40 mg PO DAILY 05/03/19 07/18/24 History cetirizine 10 mg tablet 10 mg PO DAILY PRN Allergy Symptoms 08/28/21 07/05/24 History meclizine 25 mg tablet 25 mg PO BID PRN Dizziness 08/28/21 04/20/24 History albuterol 90 mcg/actuation aerosol 90 mcg inhalation PRN PRN 11/24/21 07/18/24 History inhaler Shortness Of Breath allopurinol 100 mg tablet 1 tablet PO DAILY 11/24/21 07/18/24 History calcitriol 0.25 mcg capsule 1 cap PO DAILY 11/24/21 07/18/24 History ergocalciferol (vitamin D2) 1,250 1 cap PO WEEKLY 11/24/21 07/18/24 History mcg (50,000 unit) capsule losartan 25 mg tablet 1 tablet PO DAILY 11/24/21 07/18/24 History hydroxychloroquine 200 mg tablet 200 mg PO BID #180 tabs 09/21/23 07/18/24 Rx (Plaquenil) Patient hx anesthesia problems: none Family hx anesthesia problems: none Results Review: All pre-operative results and documents have been reviewed as part of the pre-operative evaluation. [facility] Past Medical History Medical History Degenerative joint disease (DJD) of lumbar spine Asthma Gall stones Abnormal Pap smear of cervix 06-15-2019 ascus hpv negative rpt pap in 1 year @ A/E 12/16/2017 +HPV Colon cancer screening Disorder of left rotator cuff (~11/2019) 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 GERD (gastroesophageal reflux disease) Arthritis COPD (chronic obstructive pulmonary disease) Allergies Surgical History Surgical History History of hysteroscopy (12/17/21) Hscope D&C PMB History of cholecystectomy History of tubal ligation History of dilation and curettage (09/28/19) D&C postmenopausal bleeding , uterine fibroids : benign History of kidney surgery Family History Family History Father Kidney malignancy Heart disease Mother Diabetes mellitus Sibling Diabetes mellitus Other Breast cancer cousin Social History Social History Smoking packs per day: 0.5 Smoking cigarettes per day: 10.0 Years smoked: 15 Smoking pack-years: 7.50 Smoking status: Former smoker Tobacco type: cigarettes Smoking end date: 05/17/69 Alcohol intake: current Alcohol use details: socially Substance use: never Substance use type: does not use Living arrangements: with family Additional living arrangements comments: Occupation/Education: retired Gender identity (if verbalized by the patient): Female Sexual Orientation (if Verbalized by the Patient): Straight or Heterosexual Spiritual care concerns: No Anes - Eval Final PreProcedure Day of Procedure 07/18/24 09:33 Patient weight: morbidly obese Heart: regular rate and rhythm Lungs: clear to auscultation Airway: Mallampati scale class II Neurological: alert and oriented Last oral intake: >/= 8 hours ASA classification: III Emergent: no Anesthetic plan: proceed Anesthesia type and monitoring: general GIVS and standard monitoring Results Review: All pre-operative results and documents have been reviewed as part of the pre-operative evaluation. Informed Consent: The patient's anesthetic plan and its attendant risks and benefits were discussed with the patient/family/POA. Questions were solicited and answers provided to the satisfaction of the patient/family/POA.
--- NOTE | 2024-07-18 09:40 | PM.HPGS ---
History of Present Illness History of Present Illness Consent: Risks, benefits, and alternatives have been discussed and questions answered. Patient agrees to proceed with procedure. Chief complaint: Personal hx. of colon polyps Narrative: Jing Chan is a 79 year old female with colon polyp 2020 Review of Systems Review of Systems: All systems reviewed & are unremarkable except as noted in HPI and below PMFSH Past Medical History Medical History (Updated 07/18/24 @ 09:43 by Mk Zimmerman MD) Colon polyp Degenerative joint disease (DJD) of lumbar spine Asthma Gall stones Abnormal Pap smear of cervix 06-15-2019 ascus hpv negative rpt pap in 1 year @ A/E 12/16/2017 +HPV Colon cancer screening Disorder of left rotator cuff (~11/2019) 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 GERD (gastroesophageal reflux disease) Arthritis COPD (chronic obstructive pulmonary disease) Allergies Surgical History Surgical History History of hysteroscopy (12/17/21) Hscope D&C PMB History of cholecystectomy History of tubal ligation History of dilation and curettage (09/28/19) D&C postmenopausal bleeding , uterine fibroids : benign History of kidney surgery Family History Family History Father Kidney malignancy Heart disease Mother Diabetes mellitus Sibling Diabetes mellitus Other Breast cancer cousin Social History Social History Smoking packs per day: 0.5 Smoking cigarettes per day: 10.0 Years smoked: 15 Smoking pack-years: 7.50 Smoking status: Former smoker Tobacco type: cigarettes Smoking end date: 05/17/69 Alcohol intake: current Alcohol use details: socially Substance use: never Substance use type: does not use Living arrangements: with family Additional living arrangements comments: Occupation/Education: retired Gender identity (if verbalized by the patient): Female Sexual Orientation (if Verbalized by the Patient): Straight or Heterosexual Spiritual care concerns: No Meds Home Medications and Allergies Home Medications ?Medication ?Instructions ?Recorded ?Confirmed ?Type atorvastatin 40 mg tablet 40 mg PO DAILY 05/03/19 07/18/24 History cetirizine 10 mg tablet 10 mg PO DAILY PRN Allergy Symptoms 08/28/21 07/05/24 History meclizine 25 mg tablet 25 mg PO BID PRN Dizziness 08/28/21 04/20/24 History albuterol 90 mcg/actuation aerosol 90 mcg inhalation PRN PRN 11/24/21 07/18/24 History inhaler Shortness Of Breath allopurinol 100 mg tablet 1 tablet PO DAILY 11/24/21 07/18/24 History calcitriol 0.25 mcg capsule 1 cap PO DAILY 11/24/21 07/18/24 History ergocalciferol (vitamin D2) 1,250 1 cap PO WEEKLY 11/24/21 07/18/24 History mcg (50,000 unit) capsule losartan 25 mg tablet 1 tablet PO DAILY 11/24/21 07/18/24 History hydroxychloroquine 200 mg tablet 200 mg PO BID #180 tabs 09/21/23 07/18/24 Rx (Plaquenil) Allergies Allergy/AdvReac Type Severity Reaction Status Date / Time indomethacin Allergy Unknown Itching Verified 07/18/24 09:08 levofloxacin (From Levaquin) Allergy Unknown Itching Verified 07/18/24 09:08 Penicillins Allergy Unknown Unknown Verified 07/18/24 09:08 Sulfa (Sulfonamide Allergy Unknown Hives Verified 07/18/24 09:08 Antibiotics) Vital Signs Vital Signs - 24 hr 07/18/24 09:16 Temperature 96.8 F L Pulse Rate 108 H Respiratory Rate 20 Blood Pressure 155/91 H Pulse Oximetry 100 Oxygen Delivery Room Air Exam Const: General: comfortable and no acute distress HENMT: Face/Nose/Sinus: Normal nares present Eyes: General: appearance normal, both eyes and all related structures Neck: Neck: no JVD Resp: Auscultation: clear to auscultation bilaterally Cardio: Rate: regular rate Rhythm: regular rhythm GI: Inspection: non-distended GI Palp: Yes Soft to palpation Skin: General skin exam: normal color Neuro: Speech: normal speech Extrem: General: normal to inspection Psych: Mental Status: mental status grossly normal Assessment and Plan Assessment and plan (1) Colon polyp: Code(s): K63.5 - Polyp of colon Status: Acute Assessment and Plan: colonoscopy
[2024-07-18 09:54] VITALS: BP 123/72; PULSE 95; RESP 18; O2SAT 95
[2024-07-18 10:04] VITALS: BP 118/70; PULSE 94; RESP 16; O2SAT 100
[2024-07-18 10:14] VITALS: BP 125/81; PULSE 97; RESP 18; O2SAT 100
== END 2024-07-18 10:29 | disposition home or self-care (01) ==
PROVIDERS: PCP Internal Medicine; Visit Provider Internal Medicine Gastroenterology
PROC: 0DJD8ZZ Inspection of Lower Intestinal Tract, Via Natural or Artificial Opening Endoscopic (ICD-10-PCS; CPT 45378; principal; 2024-07-18 10:30)
DX: Z12.11 Encounter for screening for malignant neoplasm of colon (principal); K63.5 Polyp of colon; K57.30 Diverticulosis of large intestine without perforation or abscess without bleeding; K21.9 Gastro-esophageal reflux disease without esophagitis; J44.9 Chronic obstructive pulmonary disease, unspecified; M47.896 Other spondylosis, lumbar region; D86.86 Sarcoid arthropathy; D86.2 Sarcoidosis of lung with sarcoidosis of lymph nodes; Z79.51 Long term (current) use of inhaled steroids; Z98.890 Other specified postprocedural states; Z90.49 Acquired absence of other specified parts of digestive tract; Z98.51 Tubal ligation status; Z87.891 Personal history of nicotine dependence; Z87.19 Personal history of other diseases of the digestive system; Z80.3 Family history of malignant neoplasm of breast; Z80.51 Family history of malignant neoplasm of kidney; Z82.49 Family history of ischemic heart disease and other diseases of the circulatory system
CPT/HCPCS: 45380; 88305; J2704; J7120

== ENCOUNTER 2024-12-01 08:52 | Outpatient (CLI) | payer MEDICARE, SELFPAY ==
--- OUTSIDE RECORDS SUMMARY | 2024-12-01 08:57 | XMS_ITS ---
Author Organization [facility] Address [address] [address] Care Team Providers Care Vice Chairman Name Role Phone BrittonDevenDean Unavailable [phone] Problems Problem Type SNOMED Code ICD Code Onset Dates Problem Status W/U Status Risk Notes Problem Chronic kidney disease stage 2 (883630927) Chronic kidney disease, stage 2 (mild) (N18.2) Active confirmed Problem Renal osteodystrophy (29538484) Renal osteodystrophy (N25.0) Active confirmed Problem Secondary hyperparathyroidism of renal origin (98996304) Secondary hyperparathyroidism of renal origin (N25.81) Active confirmed Problem Hyperlipidemia (43372588) Hyperlipidemia, unspecified (E78.5) Active confirmed Encounters Encounter Location Date Provider Diagnosis Jeff Herron [address] [place] [address] 11/10/2024 Dean Jarquin Chronic kidney disea se, stage 2 (mild) N18.2 ; Obesity, unspecified E66.9 ; Essential hypertension I10 ; Proteinuria, unspecified R80.9 ; Renal osteodystrophy N25.0 ; Secondary hyperparathyroidism of renal origin N25.81 and Hyperlipidemia, unspecified E78.5 Assessments Encounter Date Diagnosis (ICD Code) Assessment Notes Treatment Notes Treatment Clinical Notes Section Notes 11/10/2024 Chronic kidney disea se, stage 2 (mild) (ICD-10 - N18.2) 11/10/2024 Obesity, unspecified (ICD-10 - E66.9) 11/10/2024 Essential hypertensi on (ICD-10 - I10) 11/10/2024 Proteinuria, unspecified (ICD-10 - R80.9) 11/10/2024 Renal osteodystrophy (ICD-10 - N25.0) 11/10/2024 Secondary hyperparathyroidism of renal origin (ICD-10 - N25.81) 11/10/2024 Hyperlipidemia, unspecified (ICD-10 - E78.5) Plan Of Treatment Next Appt Details Provider Name:Dean Jarquin , 12/15/2024 02:30:00 PM, [address] [facility] [address], [place], [address], Progress Notes * HIEN ROBISONDOB:1945 (79 yo F)Acc No.[id number]:11/10/2024 Progress Notes Patient: HIEN MCKNIGHT Provider: Danish MARIEE MD, F.Jes.C.P, F.A.S.N. :1945 A ge:79 Y S ex:Female Date:11/10/2024 Address:[address] [place], [place] [id number] Subjective: * Chief Complaints: * * Medical History: Objective: * Vitals: Assessment: * Assessment: 1. C hronic kidney disease, stage 2 (mild) - N18.2 (Primary) 2 . O besity, unspecified - E66.9 3 . E ssential hypertension - I10 4 . P roteinuria, unspecified - R80.9 5 . R enal osteodystrophy - N25.0 6. S econdary hyperparathyroidism of renal origin - N25.81 7 . H yperlipidemia, unspecified - E78.5 Plan: * Treatment: * Billing Information: * Visit Code: 04356 Office Visit, New Pt., Level 5. * Procedure Codes: * Electronic signature of Antoinette Jarquin MD on 12/01/2024 at 08:57 AM CDT Sign off status: Pending * Provider: Danish MARIEE MD, F.Jes.C.P, F.A.S.N. Date: 11/10/2024 Generated for Printing/Faxing/eTransmitting on: 12/01/2024 08:57 AM CDT
--- OUTSIDE RECORDS SUMMARY | 2024-12-01 08:57 | XMS_ITS | Patient Health Record ---
Author Organization [facility] Office Address [address] [facility] [address] [facility] [address] [place] [address] Care Team Providers Care Field Representatives Director Name Role Phone Dean Jarquin Unavailable [phone] Reason For Referral No Information Medications Medication SIG (Take, Route, Frequency, Duration) Notes Start Date End Date Status Allopurinol 100 MG TAKE 1 TABLET EVERY DAY; Duration: 90 Active Vitamin D (Ergocalciferol) 1.25 MG (21470 UT) TAKE 1 CAPSULE BY MOUTH EVERY OTHER WEEK; Duration: 30 Active Losartan Potassium 50 MG TAKE 1 TABLET E VERY DAY; Duration: 90 Active Calcitriol 0.25 MCG Take 1 capsule by mo ut once daily; Duration: 90 Active Problems Problem Type SNOMED Code ICD Code Onset Dates Problem Status W/U Status Risk Notes Problem Obesity (159956784) Obesity, uns pecified (E66.9) Active confirmed Problem Hyperlipidemia (75602996) Hyperlipidemia, unspecified (E78.5) Active confirmed Problem Chronic kidney disease stage 2 (354947978) Chronic kidney disease, stage 2 (mild) (N18.2) Active confirmed Problem Renal osteodystrophy (43747481) Renal osteodystrophy (N25.0) Active confirmed Problem Secondary hyperparathyroidism of renal origin (65426232) Secondary hyperparathyroidism of renal origin (N25.81) Active confirmed Problem Tachycardia (4682089) Tachycardi a, unspecified (R00.0) Active confirmed Problem Essential hypertension (84003537) Essential hypertension (I10) Active confirmed Encounters Encounter Location Date Provider Diagnosis Jeff Herron [address] [place] [address] 11/10/2024 Dean Jarquin Chronic kidney disea se, stage 2 (mild) N18.2 ; Obesity, unspecified E66.9 ; Essential hypertension I10 ; Proteinuria, unspecified R80.9 ; Renal osteodystrophy N25.0 ; Secondary hyperparathyroidism of renal origin N25.81 and Hyperlipidemia, unspecified E78.5 Assessments Encounter Date Diagnosis (ICD Code) Assessment Notes Treatment Notes Treatment Clinical Notes Section Notes 11/10/2024 Obesity, unspecified (ICD-10 - E66.9) 11/10/2024 Chronic kidney disea se, stage 2 (mild) (ICD-10 - N18.2) 11/10/2024 Essential hypertensi on (ICD-10 - I10) 11/10/2024 Proteinuria, unspecified (ICD-10 - R80.9) 11/10/2024 Renal osteodystrophy (ICD-10 - N25.0) 11/10/2024 Secondary hyperparathyroidism of renal origin (ICD-10 - N25.81) 11/10/2024 Hyperlipidemia, unspecified (ICD-10 - E78.5) Plan Of Treatment Next Appt Details Provider Name:Dean Jarquin , 12/15/2024 02:30:00 PM, [address] [facility] [address], [place], [address],
--- OUTSIDE RECORDS SUMMARY | 2024-12-01 08:57 | XMS_ITS | Clinical Summary ---
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 Gender Identity Not on file Sexual Orientation Not on file Plan of Treatment Health Maintenance Due Date Last Done Comments Hepatitis C Virus (HCV) Screening 1945 TdaP Immunization 1945 Zoster Immunization (1 of 2) 1997 Pneumococcal Immunization (50+ years) (2 of 2 - PPSV23) 05/04/2020 05/04/2019 Respiratory Syncytial Virus (RSV) Immunization (Adult) (1 - 1-dose 75+ series) 2022 SARS-COV-2 Immunization ( - 2023- season) 2024 Influenza Immunization (#1) 01/15/202502/15, 03/08/2019, 02/14/2018, Additional history exists Pneumococcal Immunization Combined Discontinued 05/04/2019 Hepatitis B Immunization Aged Out No longer eligible based on patient's age to complete this topic Human Papillomavirus (HPV) Immunization Aged Out No longer eligible based on patient's age to complete this topic Meningococcal Immunization (ACWY) Aged Out No longer eligible based on patient's age to complete this topic Rotavirus Immunization Aged Out No lo nger eligible based on patient's age to complete this topic
[2024-12-01 10:09] LABS: Hematocrit 44.3 % (37.0-47.0); Hemoglobin 14.4 g/dL (12.0-15.0); Immature Granulocyte Percent A 0.2 % (0-0.5); Lymphocytes Absolute Auto 1.69 K/mm3 (0.9-3.2); Mean Corpuscular HGB Conc 32.5 g/dl (32-36); Mean Corpuscular Hemoglobin 32.0 pg (26-34); Mean Corpuscular Volume 98.4 fl (80-100); Nucleated Red Blood Cells Absolute Auto 0.000 K/mm3 (0.0-0.012); Nucleated Red Blood Cells Perc 0.0 % (0.0-0.2); Platelet Count Result 249 k/mm3 (150-375); Red Blood Count 4.50 M/mm3 (4.2-5.4); White Blood Count 4.6 K/mm3 (4.5-10.0)
[2024-12-01 10:30] LABS: Alanine Aminotransferase 14 U/L (6-35); Albumin Level 4.2 g/dL (3.5-5.1); Alkaline Phosphatase 65 U/L (38-126); Anion Gap 9 mmol/L (4-12); Aspartate Amino Transferase 32 U/L (14-36); Bilirubin,Total 0.6 mg/dL (0.2-1.3); Blood Urea Nitrogen 19 mg/dL (7-17); Calcium 9.5 mg/dL (8.4-10.2); Carbon Dioxide 27 mmol/L (22-30); Chloride 106 mmol/L (98-107); Estimated Glomerular Filt Rate > 60; Glucose 95 mg/dL (65-110); Potassium 3.9 mmol/L (3.4-5.0); Sodium 142 mmol/L (137-145); Total Protein 8.2 g/dL (6.3-8.2); Uric Acid 4.7 mg/dL (2.5-7.5)
[2024-12-01 10:56] LABS: Add Urine Microscopic? YES; Appearance Urine Cloudy (Clear); Glucose Urine UA Negative (Negative); Leukocyte Esterase Ur 2+ LEU/UL (Negative); Need Manual Microscopic Reviewed; Nitrate Urine Negative (Negative); Non Pathogenic Casts 0-2; Specific Grav Ur 1.027 (1.001-1.035)
[2024-12-01 10:59] LABS: Parathyroid Intact 19.3 pg/mL (14.5-75.2)
[2024-12-01 11:03] LABS: MALB Creatinine Ratio 6.0 mg/g (0-30)
[2024-12-01 11:06] LABS: Total Protein Urine Random < 5 mg/dL; Ur Ttl Prot Creatinine Ratio < 0.02 mg/mg (0-0.20)
[2024-12-01 11:28] LABS: Hemoglobin A1C 4.8 % (<5.7)
[2024-12-02 11:08] LABS: Chloride, Urine 221 mmol/L (Not Estab.)
[2024-12-04 14:08] LABS: Free Lambda Lt Chains, Serum 20.0 mg/L (5.7-26.3); Kappa/Lambda Ratio, Serum 1.84 (0.26-1.65)
[2024-12-05 12:08] LABS: Osmolality, Urine 977 mOsmol/kg (.)
[2024-12-05 14:08] LABS: ANA by IFA Rfx Titer/Pattern Negative (.)
== END 2024-12-01 08:53 | disposition home or self-care (01) ==
LOC: ANHLAB 08:54
PROVIDERS: PCP Internal Medicine; Visit Provider Specialist
DX: N18.30 Chronic kidney disease, stage 3 unspecified (principal); D63.1 Anemia in chronic kidney disease; E11.65 Type 2 diabetes mellitus with hyperglycemia; E11.22 Type 2 diabetes mellitus with diabetic chronic kidney disease; E78.5 Hyperlipidemia, unspecified; R06.9 Unspecified abnormalities of breathing; E21.3 Hyperparathyroidism, unspecified; E55.9 Vitamin D deficiency, unspecified; R82.90 Unspecified abnormal findings in urine; Z79.4 Long term (current) use of insulin
CPT/HCPCS: 36415; 80053; 81001; 82043; 82306; 82436; 82570; 83036; 83935; 83970; 84133; 84156; 84300; 84550; 85025; 86037; 86038; 86225

== ENCOUNTER 2024-12-01 11:47 | Outpatient (CLI) | payer MEDICARE, SELFPAY ==
--- NOTE | ~2024-12-01 | US_ITS ---
US retroperitoneal comp 12/01/2024 12:08 Procedure: Realtime transabdominal ultrasound of the kidneys and bladder. Indication: Renal disease Comparison: No prior studies for comparison. Findings: Renal echotexture is normal bilaterally without hydronephrosis, contour deforming mass or r enal calculus. The right kidney measures 7.8 cm and left kidney measures 8.2 cm. Bladder within norm al limits. Impression: 1: Unremarkable renal ultrasound. No stones, masses or hydronephrosis. Reviewed, dictated and finalized at location A. Impression: 1: Unremarkable renal ultrasound. No stones, masses or hydronephrosis.
== END 2024-12-01 11:48 | disposition home or self-care (01) ==
PROVIDERS: PCP Internal Medicine; Visit Provider Internal Medicine
DX: N18.30 Chronic kidney disease, stage 3 unspecified (principal)
CPT/HCPCS: 76770

== ENCOUNTER 2024-12-04 09:50 | Outpatient (CLI) | payer MEDICARE, SELFPAY ==
--- OUTSIDE RECORDS SUMMARY | 2024-12-04 09:55 | XMS_ITS | Patient Health Record ---
Author Organization [facility] Address [address] [facility] [address] [facility] [address] [place] [address] Care Team Providers Care Tetryl Screen Operator Name Role Phone Dean Jarquin Unavailable [phone] Reason For Referral No Information Medications Medication SIG (Take, Route, Frequency, Duration) Notes Start Date End Date Status Allopurinol 100 MG TAKE 1 TABLET EVERY DAY; Duration: 90 Active Vitamin D (Ergocalciferol) 1.25 MG (52415 UT) TAKE 1 CAPSULE BY MOUTH EVERY OTHER WEEK; Duration: 30 Active Losartan Potassium 50 MG TAKE 1 TABLET E VERY DAY; Duration: 90 Active Calcitriol 0.25 MCG Take 1 capsule by mo ut once daily; Duration: 90 Active Problems Problem Type SNOMED Code ICD Code Onset Dates Problem Status W/U Status Risk Notes Problem Obesity (550077616) Obesity, uns pecified (E66.9) Active confirmed Problem Hyperlipidemia (96406763) Hyperlipidemia, unspecified (E78.5) Active confirmed Problem Chronic kidney disease stage 2 (965986948) Chronic kidney disease, stage 2 (mild) (N18.2) Active confirmed Problem Renal osteodystrophy (13314352) Renal osteodystrophy (N25.0) Active confirmed Problem Secondary hyperparathyroidism of renal origin (00209702) Secondary hyperparathyroidism of renal origin (N25.81) Active confirmed Problem Tachycardia (5501576) Tachycardi a, unspecified (R00.0) Active confirmed Problem Essential hypertension (63044823) Essential hypertension (I10) Active confirmed Encounters Encounter Location Date Provider Diagnosis Jeff Herron [address] [place] [address] 11/10/2024 Dean Jarquin Chronic kidney disea se, [...] Name:Dean Jarquin , 12/15/2024 02:30:00 PM, [address] [facility] [address], [place], [address],
--- OUTSIDE RECORDS SUMMARY | 2024-12-04 09:55 | XMS_ITS ---
Author Organization [facility] Address [address] [place] [address] Care Team Providers Care Trauma Manager Name Role Phone BrittonDevenDean Unavailable [phone] Problems Problem Type SNOMED Code ICD Code Onset Dates Problem Status W/U Status Risk Notes Problem Chronic kidney disease stage 2 (887877858) Chronic kidney disease, stage 2 (mild) (N18.2) Active confirmed Problem Renal osteodystrophy (82841234) Renal osteodystrophy (N25.0) Active confirmed Problem Secondary hyperparathyroidism of renal origin (17664358) Secondary hyperparathyroidism of renal origin (N25.81) Active confirmed Problem Hyperlipidemia (44233378) Hyperlipidemia, unspecified (E78.5) Active confirmed Encounters Encounter Location Date Provider Diagnosis Jeff Herron [address] [place] [address] 11/10/2024 Dean Jarquin Chronic kidney disea se, [...] Name:Dean Jarquin , 12/15/2024 02:30:00 PM, [address] [facility] [address], [place], [address], Progress Notes * HIEN ROBISONDOB:1945 (79 yo F)Acc No.[id number]:11/10/2024 Progress Notes Patient: HIEN MCKNIGHT Provider: Danish MARIEE MD, F.Jes.C.P, F.A.S.N. :1945 A ge:79 Y S ex:Female Date:11/10/2024 Address:[address] [place], [place] [id number] Subjective: * Chief Complaints: * * Medical [...] Treatment: * Billing Information: * Visit Code: 56044 Office Visit, New Pt., Level 5. * Procedure Codes: * Electronic signature of Antoinette Jarquin MD on 12/04/2024 at 09:55 AM CDT Sign off status: Pending * Provider: Danish MARIEE MD, F.Jes.C.P, F.A.S.N. Date: 11/10/2024 Generated for Printing/Faxing/eTransmitting on: 12/04/2024 09:55 AM CDT
--- OUTSIDE RECORDS SUMMARY | 2024-12-04 09:55 | XMS_ITS | Clinical Summary ---
Author Organization 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
[2024-12-04 10:57] LABS: Serum Creat 0.89
[2024-12-04 11:00] LABS: Creatinine Clearance Urine 72.8 ml/min (75-125); Total Volume 24 Hour Urine 600 ml
== END 2024-12-04 09:51 | disposition home or self-care (01) ==
LOC: ANHLAB 09:51
PROVIDERS: PCP Internal Medicine; Visit Provider Specialist
DX: N18.30 Chronic kidney disease, stage 3 unspecified (principal); E11.65 Type 2 diabetes mellitus with hyperglycemia; R60.9 Edema, unspecified; E21.3 Hyperparathyroidism, unspecified; E55.9 Vitamin D deficiency, unspecified; D64.9 Anemia, unspecified
CPT/HCPCS: 82575